=== PATIENT | male | born 1975 | race Caucasian/White ===

== ENCOUNTER 2024-05-05 09:52 | Observation (INO) | payer OTHER ==
[2024-05-05 10:30] LABS: Basophils # (A) 0.1 k/uL (0-0.2); Basophils % (A) 1 %; Eosinophils # (A) 0.1 k/uL (0-0.7); Eosinophils % (A) 2 %; HGB 15.1 gm/dL (13.0-17.5); Lymphocytes # (A) 1.9 k/uL (1.0-4.8); Lymphocytes % (A) 24 %; MCH 29.7 pg (25.0-35.0); MCHC 32.8 g/dL (31.0-37.0); MCV 90.5 fL (80.0-100.0); Mean Platelet Volume 7.2; Monocytes # (A) 0.6 k/uL (0-1.0); Monocytes % (A) 8 %; Neutrophils # (A) 5.1 k/uL (1.3-7.7); Neutrophils % (A) 64 %; Platelet Count 256 k/uL (150-450); RBC 5.09 m/uL (4.30-5.90); RDW 12.9 % (11.5-15.5)
[2024-05-05 10:57] LABS: INR 0.9 (<1.2); Partial Thromboplastin Time 22.7 sec (22.0-30.0); Prothrombin Time 10.6 sec (10.0-12.5)
[2024-05-05 10:59] LABS: ALT 36 U/L (4-49); AST 28 U/L (17-59); African American GFR (CKD) 85 (>60 ml/min/1.73 sqM); Albumin 4.3 g/dL (3.5-5.0); Alkaline Phosphatase 80 U/L (38-126); Anion Gap 9 mmol/L; Blood Urea Nitrogen 18 mg/dL (9-20); Calcium 9.5 mg/dL (8.4-10.2); Carbon Dioxide 24 mmol/L (22-30); Chloride 104 mmol/L (98-107); Glucose 169 mg/dL (74-99); Magnesium 1.6 mg/dL (1.6-2.3); Non-African American GFR(CKD) 73 (>60 ml/min/1.73 sqM); Potassium 4.8 mmol/L (3.5-5.1); Sodium 137 mmol/L (137-145); Total Bilirubin 0.5 mg/dL (0.2-1.3); Total Protein 7.6 g/dL (6.3-8.2)
--- NOTE | 2024-05-05 11:07 | XR ---
EXAMINATION TYPE: XR chest 2V DATE OF EXAM: 05/05/2024 CLINICAL INDICATION: Male, 49 years old with history of Chest Pain, TECHNIQUE: Frontal and lateral views of the chest are obtained. COMPARISON: None FINDINGS: There is no focal air space opacity, pleural effusion, or pneumothorax seen. The cardiac silhouette size is within normal limits. The osseous structures are intact. IMPRESSION: No acute process. [facility], , 05/05/2024 11:04 AM
--- NOTE | 2024-05-05 11:11 | ED ---
Chest Pain HPI - General Chief Complaint: Chest Pain Stated Complaint: chest pain, clammy Time Seen by Provider: 05/05/24 10:07 Source: patient, RN notes reviewed Mode of arrival: wheelchair Limitations: no limitations - History of Present Illness Initial Comments: This is a 49-year-old male with history of CKD 3 and restrictive pulmonary disease presenting with chest pain x 3 weeks. Patient describes intermittent pain as aching (4/10) that worsens with exertion. Endorses radiating pain to jaw and left arm with associated dizziness, nausea, fatigue and clamminess. Endorses history of heart catheterization at 30 years old with small blockage noted at that time. Endorses significant family heart history with father, grandmother and brother all having cardiac events in their 50s. Denies history of hypertension or AMI. Endorses brief history of hypercholesterolemia with resolution following prescription medication use with subsequent cessation. Denies dyspnea/SOB, vomiting, BLE edema. Endorses taking ASA 81 prior to ER arrival. MD Complaint: chest pain Onset/Timin -: week(s) Onset: during rest Pain Location: left chest Pain Radiation: LUE, jaw/teeth Severity scale (1-10): 4 Quality: aching Consistency: intermittent Improves With: rest Worsens With: exertion Anginal Symptoms: nausea Treatments Prior to Arrival: aspirin (ASA 81) - Related Data Home Medications Medication Instructions Recorded Confirmed allopurinoL [Zyloprim] 300 mg PO DAILY PRN 05/05/24 05/05/24 Previous Rx's Medication Instructions Recorded Atorvastatin [Lipitor] 40 mg PO HS #90 tab 05/06/24 Famotidine [Pepcid] 20 mg PO DAILY #60 tablet 05/06/24 Allergies Allergy/AdvReac Type Severity Reaction Status Date / Time oxycodone Allergy Itching Verified 05/05/24 13:11 Review of Systems ROS Statement: Those systems with pertinent positive or pertinent negative responses have been documented in the HPI. ROS Other: All systems not noted in ROS Statement are negative. Past Medical History Additional Past Medical History / Comment(s): gout History of Any Multi-Drug Resistant Organisms: None Reported Past Surgical History: Cholecystectomy, Joint Replacement, Orthopedic Surgery Past Psychological History: PTSD Smoking Status: Never smoker Past Alcohol Use History: Occasional Past Drug Use History: Marijuana General Exam Limitations: no limitations General appearance: alert, in no apparent distress Head exam: Present: atraumatic, normocephalic, normal inspection Eye exam: Present: normal appearance, PERRL, EOMI. Absent: scleral icterus, conjunctival injection, periorbital swelling ENT exam: Present: normal exam, mucous membranes moist Neck exam: Present: normal inspection. Absent: tenderness, meningismus, lymphadenopathy Respiratory exam: Present: normal lung sounds bilaterally. Absent: respiratory distress, wheezes, rales, rhonchi, stridor, accessory muscle use, decreased breath sounds, prolonged expiratory Cardiovascular Exam: Present: regular rate, normal rhythm, normal heart sounds. Absent: systolic murmur, diastolic murmur, rubs, gallop, clicks GI/Abdominal exam: Present: soft, normal bowel sounds. Absent: distended, tenderness, guarding, rebound, rigid Extremities exam: Present: normal inspection, full ROM, normal capillary refill, other (Bilateral posterior tibialis pulse +2). Absent: tenderness, pedal edema, joint swelling, calf tenderness Back exam: Present: normal inspection Neurological exam: Present: alert, oriented X3, CN II-XII intact Psychiatric exam: Present: normal affect, normal mood Skin exam: Present: warm, dry, intact, normal color. Absent: rash Course Vital Signs 05/05/24 05/05/24 05/05/24 09:56 11:45 13:54 Temperature 97.8 F Pulse Rate 66 60 57 L Pulse Rate [ Pulse Oximetery ] Respiratory 18 20 16 Rate Blood Pressure 188/76 144/87 117/73 Blood Pressure [Left Arm] O2 Sat by Pulse 98 98 97 Oximetry 05/05/24 05/05/24 15:00 15:26 Temperature 97.7 F 98.1 F Pulse Rate 64 Pulse Rate [ 59 L Pulse Oximetery ] Respiratory 18 18 Rate Blood Pressure 128/77 Blood Pressure 128/73 [Left Arm] O2 Sat by Pulse 97 96 Oximetry Chest Pain MDM - MDM Was pt. sent in by a medical professional or institution (, PA, ELECTROPHYSIOLOGY TECHNOLOGIST, urgent care, hospital, or long term...) When possible be specific @ -No Did you speak to anyone other than the patient for history (EMS, parent, family, police, friend...)? What history was obtained from this source @ -No Did you review nursing and triage notes (agree or disagree)? Why? @ -I reviewed and agree with nursing and triage notes Were old charts reviewed (outside hosp., previous admission, EMS record, old EKG, old radiological studies, urgent care reports/EKG's, long term records)? Report findings @ -No old charts were reviewed Differential Diagnosis (chest pain, altered mental status, abdominal pain women, abdominal pain men, vaginal bleeding, weakness, fever, dyspnea, syncope, headache, dizziness, GI bleed, back pain, seizure, CVA, palpatations, mental health, musculoskeletal)? @ -Differential Chest Pain: Stable Angina, Unstable Angina, STEMI, NSTEMI Aortic Dissection, Pneumothorax, Musculoskeletal, Esophageal Spasm GERD, Cholecystitis, Pancreatitis, Zoster, this is not meant to be an all-inclusive list. EKG interpreted by me (3pts min.). @ -Sinus rhythm with incomplete RBBB. No ST deviation or T wave inversion. Ventricular rate 64 bpm, JEREMI 197 ms, QRS 98 ms, QTc 383 ms. X-rays interpreted by me (1pt min.). @ -CXR shows no acute cardiopulmonary process. CT interpreted by me (1pt min.). @ -None done U/S interpreted by me (1pt. min.). @ -None done What testing was considered but not performed or refused? (CT, X-rays, U/S, labs)? Why? @ -None What meds were considered but not given or refused? Why? @ -None Did you discuss the management of the patient with other professionals (professionals i.e. , PA, ELECTROPHYSIOLOGY TECHNOLOGIST, lab, RT, psych nurse, aids social worker, spindraw operator, teacher, customer service officer, director of casework)? Give summary @ -Spoke to Dr. Irby for patient admission to obs unit with cardiac consult placed. Was smoking cessation discussed for >3mins.? @ -No Was critical care preformed (if so, how long)? @ -Yes, 35 minutes Were there social determinants of health that impacted care today? How? (Homelessness, low income, unemployed, alcoholism, drug addiction, tra nsportation, low edu. Level, literacy, decrease access to med. care, assisted, rehab)? @ -No Was there de-escalation of care discussed even if they declined (Discuss DNR or withdrawal of care, Hospice)? DNR status @ -No What co-morbidities impacted this encounter? (DM, HTN, Smoking, COPD, CAD, Cancer, CVA, ARF, Chemo, Hep., AIDS, mental health diagnosis, sleep apnea, morbid obesity)? @ -None Was patient admitted / discharged? Hospital course, mention meds given and route, prescriptions, significant lab abnormalities, going to OR and other pertinent info. @ -Heart score - 4. Lab work shows hyperglycemia 169 with negative repeat troponin and BNP. CXR shows no acute cardiopulmonary process. Patient initially provided p.o. chewable aspirin and sublingual nitroglycerin with complete resolution of chest pain following use. Patient started on Nitropaste and low intensity heparin drip. Spoke to Dr. Irby for patient admission to obs unit with cardiac consult placed. Discussed patient with Dr. Nguyen. Undiagnosed new problem with uncertain prognosis? @ -Chest pain Drug Therapy requiring intensive monitoring for toxicity (Heparin, Nitro, Insulin, Cardizem)? @ -Heparin Were any procedures done? @ -No Diagnosis/symptom? @ -Chest pain Acute, or Chronic, or Acute on Chronic? @ -Acute Uncomplicated (without systemic symptoms) or Complicated (systemic symptoms)? @ -Complicated Side effects of treatment? @ -No Exacerbation, Progression, or Severe Exacerbation? @ -No Poses a threat to life or bodily function? How? (Chest pain, [place], PR, pneumonia, PE, COPD, DKA, ARF, appy, cholecystitis, CVA, Diverticulitis, Homicidal, Suicidal, threat to staff... and all critical care pts) @ -Chest pain Disposition Clinical Impression: Chest pain Disposition: ADMITTED IP TO THIS HOSP Condition: Good Is patient prescribed a controlled substance at d/c from ED?: No Time of Disposition: 12:06 Decision Date: 05/05/24 Decision Time: 12:06
[2024-05-05] MEDS: ASPIRIN 81 MG PO STA (11:15)
[2024-05-05] MEDS: NITROGLYCERIN SL TABS 0.4 MG TAB SUBLINGUAL STA (11:16)
[2024-05-05] MEDS ORDERED: NALOXONE 0.4 MG/ML 1 ML VIAL IV PRN ×2 (12:03→13:16)
[2024-05-05] MEDS ORDERED: ONDANSETRON 4 MG/2 ML VIAL IVP PRN (12:03)
[2024-05-05] MEDS: NITROGLYCERIN OINT 1 INCH/GM PACKET TOPICAL STA (12:09)
[2024-05-05] MEDS: HEPARIN SODIUM 1,000 UN/ML (10ML VL) IV ONE (12:10)
[2024-05-05] MEDS: HEPARIN SOD,PORK IN 0.45% NACL 25,000 UNIT in 0.45% NACL 1 250ML.BAG IV SCH (12:13)
[2024-05-05] MEDS ORDERED: MAG HYDROX/AL HYDROX/SIMETH 30 ML CUP PO PRN (13:16)
[2024-05-05] MEDS ORDERED: oxyCODONE-APAP 5-325MG 1 EACH TAB PO PRN (13:16)
[2024-05-05] MEDS ORDERED: MELATONIN 3 MG TABLET PO PRN (13:16)
--- NOTE | 2024-05-05 13:38 | P.HPIM ---
History of Present Illness H&P Date: 05/05/24 History of present illness; patient is a 49-year-old gentleman with past medical history significant for CKD who presented the ER for chest pain. Patient stated that he has been having this chest pain for the last 3 weeks, it is intermittent, constricting in nature, central location, radiating to jaw and left and brought about by exertion and relieved by rest. Patient also complaining of shortness of breath associate with this chest pain. Patient states he becomes diaphoretic at the time of chest pain. There is no current nausea, vomiting abdominal pain. Patient denies any orthopnea or PND. There is no complaint of swelling of feet. Because of the chest pain, patient came to the ER Initial lab work done in the ER showed WBC 8, hemoglobin 15.1, platelet count 256, sodium 137, potassium 4.8, BUN 18, creatinine 1.16, glucose 169, calcium 9.5, AST 28, ALT 36, troponin 0.012 EKG done in the ER showed heart rate of 64, no ST segment elevation or depression seen, no T-wave inversions seen. Chest x-ray done in the ER showed no acute process Patient admitted to internal medicine service REVIEW OF SYSTEMS: CONSTITUTIONAL: No fever, no malaise, no fatigue. HEENT: No recent visual problems or hearing problems. Denied any sore throat. CARDIOVASCULAR: As mentioned above PULMONARY: As mentioned above GASTROINTESTINAL: No diarrhea, no nausea, no vomiting, no abdominal pain. NEUROLOGICAL: No headaches, no weakness, no numbness. HEMATOLOGICAL: Denies any bleeding or petechiae. GENITOURINARY: Denies any burning micturition, frequency, or urgency. MUSCULOSKELETAL/RHEUMATOLOGICAL: Denies any joint pain, swelling, or any muscle pain. ENDOCRINE: Denies any polyuria or polydipsia. The rest of the 14-point review of systems is negative. PHYSICAL EXAMINATION: GENERAL: The patient is alert and oriented x3, not in any acute distress. Well developed, well nourished. HEENT: Pupils are round and equally reacting to light. EOMI. No scleral icterus. No conjunctival pallor. Normocephalic, atraumatic. No pharyngeal erythema. No thyromegaly. CARDIOVASCULAR: S1 and S2 present. No murmurs, rubs, or gallops. PULMONARY: Chest is clear to auscultation, no wheezing or crackles. ABDOMEN: Soft, nontender, nondistended, normoactive bowel sounds. No palpable organomegaly. MUSCULOSKELETAL: No joint swelling or deformity. EXTREMITIES: No cyanosis, clubbing, or pedal edema. NEUROLOGICAL: Gross neurological examination did not reveal any focal deficits. SKIN: No rashes. Assessment and plan Chest pain, rule out acute coronary syndrome History of hypercholesteremia, not on any medication right now History of gout History of CKD Monitor vital signs Monitor CBC Monitor CMP Continue telemetry monitoring Troponin Ordered D-dimer Ordered 2D echo Ordered lipid panel Order HbA1c level Consult cardiology Labs and medication were reviewed.. Continue same treatment. Continue with symptomatic treatment. Resume home medication. Monitor labs and vitals. DVT and GI prophylaxis. Further recommendations as per clinical course of the patient Dictation was produced using [employer] dictation software. please excuse any grammatical, word or spelling errors. Past Medical History Additional Past Medical History / Comment(s): gout History of Any Multi-Drug Resistant Organisms: None Reported Past Surgical History: Cholecystectomy, Joint Replacement, Orthopedic Surgery Past Psychological History: PTSD Smoking Status: Never smoker Past Alcohol Use History: Occasional Past Drug Use History: Marijuana Medications and Allergies Home Medications Medication Instructions Recorded Confirmed Type allopurinoL [Zyloprim] 300 mg PO DAILY PRN 05/05/24 05/05/24 History Allergies Allergy/AdvReac Type Severity Reaction Status Date / Time oxycodone Allergy Itching Verified 05/05/24 13:11 Physical Exam Vitals: Vital Signs Temp Pulse Resp BP Pulse Ox 05/05/24 11:45 60 20 144/87 98 05/05/24 09:56 97.8 F 66 18 188/76 98 Intake and Output 05/04/24 05/05/24 05/05/24 22:59 06:59 14:59 Other: Weight 106.594 kg Results CBC & Chem 7: 05/05/24 10:17 05/05/24 10:17 Labs: Abnormal Lab Results - Last 24 Hours (Table) 05/05/24 Range/Units 10:17 Glucose 169 H (74-99) mg/dL
--- NOTE | 2024-05-05 14:05 | P.CRDCN ---
History of Present Illness History of present illness: HISTORY OF PRESENT ILLNESS: This is a 49-year-old male with a past medical history significant for restrictive lung disease, former nicotine dependence, marijuana use, and obesity. Patient does not follow with a employee benefits director. We have been asked to see the patient in consultation for chest pain. Patient examined at the bedside in the emergency room. Patient states about 3 weeks ago he got his truck stuck in his yard and had to dig out his truck. He reports having chest discomfort and shortness of breath at that time. He states since that incident he has been having intermittent chest discomfort. He states the pain is in the middle of his chest and is a pressure type sensation and radiates into his left arm and jaw. He reports the pain will last for about 5 to 10 minutes and then subside. He does report that the pain is worse with exertion. He received nitro in the emergency room with relief of pain. He denies having any further chest pain since that time. He also reports shortness of breath with the chest pain although he does report he is always short of breath at baseline. He states that he was told by the NH that he has restrictive lung disease. He also rep orts he has been feeling nauseated for the past few weeks and having dry heaves. The patient used to tobacco products but states he no longer does. He does report occasional marijuana use. The patient does report a significant family history of premature CAD. The patient's blood pressure was elevated with a systolic in the 180s upon admission. Patient states that he checks his blood pressure and it is usually in the 120s. DIAGNOSTICS: - EKG reveals sinus mechanism with no signs of acute ischemia. - Chest xray negative for acute process - Laboratory data: WBC 8.0. Hemoglobin 15.1. Platelet count 256. Sodium 137. Potassium 4.8. BUN 18. Creatinine 1.16. Magnesium 1.6. Troponin negative x 1 - Current home cardiac medications include none - No previous echocardiogram, stress test, or cardiac catheterization available in EMR for review REVIEW OF SYSTEMS: At the time of my exam: CONSTITUTIONAL: Denies fever or chills. HEENT: Denies blurred vision, vision changes, or eye pain. Denies hemoptysis CARDIOVASCULAR: Denies chest pain. Denies orthopnea. Denies PND. Denies palpitations RESPIRATORY: Denies shortness of breath. GASTROINTESTINAL: Denies abdominal pain. Denies nausea or vomiting. HEMATOLOGIC: Denies bleeding disorders. GENITOURINARY: Denies any blood in urine. SKIN: Denies pruitis. Denies rash. PHYSICAL EXAM: VITAL SIGNS: Reviewed. GENERAL: Well-developed in no acute distress. HEENT: Head is normocephalic. Pupils are equal, round. Sclerae anicteric. Mucous membranes of the mouth are moist. Neck supple. No JVD or thyromegaly LUNGS: Respirations even and unlabored. Lungs essentially clear to auscultation bilaterally. HEART: Regular rate and rhythm. S1 and S2 heard. ABDOMEN: Soft. Nondistended. Nontender. EXTREMITIES: Normal range of motion. No clubbing or cyanosis. Peripheral pulses intact. No lower extremity edema NEUROLOGIC: Awake and alert. Oriented x 3. ASSESSMENT: Chest pain Restrictive lung disease Former nicotine dependence Occasional marijuana use Obesity: BMI 30.2 Family history of premature coronary artery disease PLAN: Obtain 2D echo to assess cardiac structure and function Add aspirin 81 mg daily and atorvastatin 40 mg at night Check lipid panel and hemoglobin A1c Continue IV heparin Trend troponins N.p.o. at midnight Patient will be reevaluated in AM. Stress test versus cardiac catheterization to be performed tomorrow. Abstinence from marijuana encouraged Further recommendations pending patient course Nurse practitioner note has been reviewed by physician. Signing provider agrees with the documented findings, assessment, and plan of care documented by [employer] as a scribe. Past Medical History Additional Past Medical History / Comment(s): gout History of Any Multi-Drug Resistant Organisms: None Reported Past Surgical History: Cholecystectomy, Joint Replacement, Orthopedic Surgery Past Psychological History: PTSD Smoking Status: Never smoker Past Alcohol Use History: Occasional Past Drug Use History: Marijuana Medications and Allergies Home Medications Medication Instructions Recorded Confirmed Type allopurinoL [Zyloprim] 300 mg PO DAILY PRN 05/05/24 05/05/24 History Allergies Allergy/AdvReac Type Severity Reaction Status Date / Time oxycodone Allergy Itching Verified 05/05/24 13:11 Physical Exam Vitals: Vital Signs Temp Pulse Resp BP Pulse Ox 05/05/24 11:45 60 20 144/87 98 05/05/24 09:56 97.8 F 66 18 188/76 98 Intake and Output 05/04/24 05/05/24 05/05/24 22:59 06:59 14:59 Other: Weight 106.594 kg Results 05/05/24 10:17 05/05/24 10:17 Cardiac Enzymes 05/05/24 05/05/24 Range/Units 10:17 10:17 AST 28 (17-59) U/L Troponin I <0.012 (0.000-0.034) ng/mL Coagulation 05/05/24 Range/Units 10:17 PT 10.6 (10.0-12.5) sec APTT 22.7 (22.0-30.0) sec CBC 05/05/24 Range/Units 10:17 WBC 8.0 (3.8-10.6) k/uL RBC 5.09 (4.30-5.90) m/uL Hgb 15.1 (13.0-17.5) gm/dL Hct 46.0 (39.0-53.0) % Plt Count 256 (150-450) k/uL Comprehensive Metabolic Panel 05/05/24 Range/Units 10:17 Sodium 137 (137-145) mmol/L Potassium 4.8 (3.5-5.1) mmol/L Chloride 104 (98-107) mmol/L Carbon Dioxide 24 (22-30) mmol/L BUN 18 (9-20) mg/dL Creatinine 1.16 (0.66-1.25) mg/dL Glucose 169 H (74-99) mg/dL Calcium 9.5 (8.4-10.2) mg/dL AST 28 (17-59) U/L ALT 36 (4-49) U/L Alkaline Phosphatase 80 (38-126) U/L Total Protein 7.6 (6.3-8.2) g/dL Albumin 4.3 (3.5-5.0) g/dL Current Medications Generic Name Dose Route Start Last Admin Trade Name Freq PRN Reason Stop Dose Admin Acetaminophen 650 mg 05/05/24 13:16 Acetaminophen Tab 325 Mg Tab PO Q6HR PRN Mild Pain or Fever > 100.5 Al Hydroxide/Mg Hydroxide 15 ml 05/05/24 13:16 Mag Hydrox/Al Hydrox/Simeth 30 Ml Cup PO Q6HR PRN Indigestion Heparin Sodium (Porcine) 0 unit 05/05/24 11:50 Heparin Sodium 1,000 Un/Ml (10ml Vl) IV PER PROTOCOL PRN Low PTT Protocol Heparin Sodium/Sodium Chloride 250 mls @ 10 mls/hr 05/05/24 12:00 05/05/24 12 :13 25,000 unit/ Sodium Chloride IV 9.381 units/kg/hr .Q24H ALIYAH 10 mls/hr Administration Protocol 9.381 UNITS/KG/HR Melatonin 3 mg 05/05/24 13:16 Melatonin 3 Mg Tablet PO HS PRN Insomnia Naloxone HCl 0.2 mg 05/05/24 12:03 Naloxone 0.4 Mg/Ml 1 Ml Vial IV Q2M PRN Opioid Reversal Nitroglycerin 1 inch 05/05/24 20:00 Nitroglycerin Oint 1 Inch/Gm Packet TOPICAL Q8H ALIYAH Ondansetron HCl 4 mg 05/05/24 12:03 Ondansetron 4 Mg/2 Ml Vial IVP Q8HR PRN Nausea And Vomiting Oxycodone/Acetaminophen 1 each 05/05/24 13:16 Oxycodone-Apap 5-325mg 1 Each Tab PO Q4HR PRN Severe Pain (Scale 7 to 10) Intake and Output 05/04/24 05/05/24 05/05/24 22:59 06:59 14:59 Other: Weight 106.594 kg Patient Weight 05/06/24 06:59 Weight 106.594 kg 05/05/24 10:17 05/05/24 10:17
[2024-05-05] MEDS: ACETAMINOPHEN TAB 325 MG TAB PO PRN (16:38)
[2024-05-05] MEDS: NITROGLYCERIN OINT 1 INCH/GM PACKET TOPICAL SCH (19:52)
[2024-05-05] MEDS: HEPARIN SODIUM 1,000 UN/ML (10ML VL) IV PRN (20:13)
[2024-05-05] MEDS: ATORVASTATIN 40 MG TAB PO SCH (20:14)
[2024-05-06 02:01] LABS: Basophils % (A) 0 %; Eosinophils # (A) 0.1 k/uL (0-0.7); Eosinophils % (A) 2 %; HCT 42.7 % (39.0-53.0); HGB 14.2 gm/dL (13.0-17.5); Lymphocytes % (A) 35 %; MCH 29.6 pg (25.0-35.0); MCHC 33.3 g/dL (31.0-37.0); MCV 88.8 fL (80.0-100.0); Mean Platelet Volume 7.4; Monocytes # (A) 0.8 k/uL (0-1.0); Monocytes % (A) 9 %; Neutrophils # (A) 4.5 k/uL (1.3-7.7); Neutrophils % (A) 52 %; Platelet Count 217 k/uL (150-450); RBC 4.81 m/uL (4.30-5.90); RDW 13.2 % (11.5-15.5); WBC 8.6 k/uL (3.8-10.6)
[2024-05-06 02:07] LABS: Partial Thromboplastin Time 49.7 sec (22.0-30.0); Prothrombin Time 11.3 sec (10.0-12.5)
[2024-05-06] MEDS ORDERED: HEPARIN SODIUM,PORCINE (1 ML) 2,500 UNIT in SODIUM CHLORIDE 0.9% 250 ML IRRIGATION PRN (07:00)
[2024-05-06] MEDS ORDERED: HEPARIN SODIUM,PORCINE 10,000 UNIT in SODIUM CHLORIDE 0.9% 1,000 ML IRRIGATION PRN (07:00)
[2024-05-06 07:36] VITALS: RESP 16
[2024-05-06 08:41] LABS: Basophils # (A) 0.05 X 10*3/uL (0.00-0.10); Basophils % (A) 0.7 %; Eosinophils % (A) 1.4 %; HCT 42.1 % (39.6-50.0); HGB 14.8 g/dL (13.0-17.0); Lymphocytes # (A) 2.31 X 10*3/uL (0.90-5.00); Lymphocytes % (A) 31.5 %; MCH 30.4 pg (27.0-32.0); MCHC 35.2 g/dL (32.0-37.0); MCV 86.4 FL (80.0-97.0); Mean Platelet Volume 10.5 FL (9.5-12.2); Monocytes # (A) 0.84 X 10*3/uL (0.20-1.00); Monocytes % (A) 11.4 %; NRBC Per 100 WBC 0 X 10*3/uL (0.00-0.01); Neutrophils # (A) 3.93 X 10*3/uL (1.80-7.70); Neutrophils % (A) 53.5 %; Platelet Count 228 X 10*3/uL (140-440); RBC 4.87 X 10*6/uL (4.40-5.60); WBC 7.34 X 10*3/uL (4.50-10.00)
[2024-05-06] MEDS ORDERED: ALPRAZolam 0.25 MG TAB PO PRN (09:03)
[2024-05-06] MEDS ORDERED: NITROGLYCERIN SL TABS 0.4 MG TAB SUBLINGUAL PRN (09:03)
[2024-05-06] MEDS ORDERED: ALPRAZolam 0.5 MG TAB PO PRN (09:03)
--- NOTE | 2024-05-06 09:14 | P.PN ---
Subjective HISTORY OF PRESENT ILLNESS: This is a 49-year-old male with a past medical history significant for restrictive lung disease, former nicotine dependence, marijuana use, and obesity. Patient does not follow with a correctional officer. We have been asked to see the patient in consultation for chest pain. Patient examined at the bedside in the emergency room. Patient states about 3 weeks ago he got his truck stuck in his yard and had to dig out his truck. He reports having chest discomfort and shortness of breath at that time. He states since that incident he has been having intermittent chest discomfort. He states the pain is in the middle of h is chest and is a pressure type sensation and radiates into his left arm and jaw. He reports the pain will last for about 5 to 10 minutes and then subside. He does report that the pain is worse with exertion. He received nitro in the emergency room with relief of pain. He denies having any further chest pain since that time. He also reports shortness of breath with the chest pain although he does report he is always short of breath at baseline. He states that he was told by the [place] that he has restrictive lung disease. He also reports he has been feeling nauseated for the past few weeks and having dry heaves. The patient used to tobacco products but states he no longer does. He does report occasional marijuana use. The patient does report a significant family history of premature CAD. The patient's blood pressure was elevated with a systolic in the 180s upon admission. Patient states that he checks his blood pressure and it is usually in the 120s. DIAGNOSTICS: - EKG reveals sinus mechanism with no signs of acute ischemia. - Chest xray negative for acute process - Laboratory data: WBC 8.0. Hemoglobin 15.1. Platelet count 256. Sodium 137. Potassium 4.8. BUN 18. Creatinine 1.16. Magnesium 1.6. Troponin negative x 1 - Current home cardiac medications include none - No previous echocardiogram, stress test, or cardiac catheterization available in EMR for review 05/06/2024 Patient examined this morning at the bedside. Patient reports having an episode around 2:00 in the morning of chest discomfort after he got up to use the bathroom. He reports that he was given Nitropaste and his pain did improve. He currently denies chest pain at the time of examination. He remains on IV heparin. Troponins negative x 3. PHYSICAL EXAM: VITAL SIGNS: Reviewed. GENERAL: Well-developed in no acute distress. HEENT: Head is normocephalic. Pupils are equal, round. Sclerae anicteric. Mucous membranes of the mouth are moist. Neck supple. No JVD or thyromegaly LUNGS: Respirations even and unlabored. Lungs essentially clear to auscultation bilaterally. HEART: Regular rate and rhythm. S1 and S2 heard. ABDOMEN: Soft. Nondistended. Nontender. EXTREMITIES: Normal range of motion. No clubbing or cyanosis. Peripheral pulses intact. No lower extremity edema NEUROLOGIC: Awake and alert. Oriented x 3. ASSESSMENT: Chest pain/angina concerning for CAD Restrictive lung disease Former nicotine dependence Occasional marijuana use Obesity: BMI 30.2 Family history of premature coronary artery disease PLAN: 2D echo ordered. Await results Continue current cardiac medications Continue IV heparin Patient to undergo cardiac catheterization today with Dr. Jacobo as Dr. Martinez is unavailable today Abstinence from marijuana encouraged Further recommendations pending patient course Nurse practitioner note has been reviewed by physician. Signing provider agrees with the documented findings, assessment, and plan of care documented by ELECTRIC MOTOR AND GENERATOR ASSEMBLER as a scribe. Objective - Vital Signs Vital signs: Vital Signs Temp 98.0 F 05/06/24 07:05 Pulse 62 05/06/24 07:05 Resp 16 05/06/24 07:05 BP 122/70 05/06/24 07:05 Pulse Ox 97 05/06/24 07:05 FiO2 Intake & Output 05/05/24 05/06/24 05/06/24 18:59 06:59 18:59 Intake Total 220.148 Balance 220.148 Weight 106.594 kg Intake: Intake, IV Titration 220.148 Amount Heparin Sod,Pork in 0.45% 220.148 NaCl 25,000 unit In 0.45 % NaCl 1 250ml.bag @ 9. 381 UNITS/KG/HR 10 mls/hr IV .Q24H ALIYAH Rx#: [id number] Other: # Voids 2 3 - Labs CBC & Chem 7: 05/06/24 06:04 05/05/24 10:17 Labs: Abnormal Lab Results - Last 24 Hours (Table) 05/05/24 05/06/24 05/06/24 Range/Units 10:17 01:27 06:04 Immature Gran # 0.11 H (0.00-0.04) X 10*3/uL APTT 49.7 H (22.0-30.0) sec Glucose 169 H (74-99) mg/dL 05/06/24 Range/Units 06:04 Immature Gran # (0.00-0.04) X 10*3/uL APTT 39.9 H (22.0-30.0) sec Glucose (74-99) mg/dL
[2024-05-06] MEDS: ASPIRIN 81 MG PO SCH (09:37)
[2024-05-06] MEDS: ASPIRIN 325 MG TAB PO STA (09:37)
[2024-05-06] MEDS: ATORVASTATIN 80 MG TAB PO STA (09:37)
[2024-05-06] MEDS: SODIUM CHLORIDE 0.9% 1,000 ML in EMPTY BAG 1 BAG IV SCH (09:38)
--- NOTE | 2024-05-06 09:53 | CA ---
Transthoracic Echo Report Name: Palomo Romero Age: 49 Gender: M : 1975 Exam Date: 05/06/2024 07:24 Exam Location: [place] [facility] Ht (in): 74 Wt (lb): 235 Ordering Physician: Amadou Nguyen MD Attending/Referring Phys: Dairy Truck Driver Nadine Escalera RDCS Procedure CPT: Indications: Chest Pain Cardiac Hx: Technical Quality: Technically difficult study Contrast 1: Definity Total Dose (mL): 3 Contrast 2: Total Dose (mL): MEASUREMENTS (Male / Female) Normal Values 2D ECHO LV Diastolic Diameter PLAX 4.5 cm 4.2 - 5.9 / 3.9 - 5.3 cm LV Systolic Diameter PLAX 3.0 cm IVS Diastolic Thickness 1.0 cm 0.6 - 1.0 / 0.6 - 0.9 cm LVPW Diastolic Thickness 1.0 cm 0.6 - 1.0 / 0.6 - 0.9 cm LV Relative Wall Thickness 0.4 LVOT Diameter 2.4 cm LV Diastolic Volume MOD BP 105.2 cm??? 67 - 155 / 56 - 104 cm??? LV Systolic Volume MOD BP 41.0 cm??? 22 - 58 / 19 - 49 cm??? LV Ejection Fraction MOD BP 61.1 % >= 55 % LV Cardiac Index MOD BP 1537.1 cm???/min???m??? LV Diastolic Volume MOD 4C 108.5 cm??? LV Systolic Volume MOD 4C 40.8 cm??? LV Ejection Fraction MOD 4C 62.3 % LV Cardiac Index MOD 4C 1618.3 cm???/min???m??? LV Diastolic Length 4C 9.0 cm LV Systolic Length 4C 7.2 cm LV Diastolic Volume MOD 2C 87.8 cm??? LV Systolic Volume MOD 2C 35.9 cm??? LV Ejection Fraction MOD 2C 59.1 % LV Cardiac Index MOD 2C 1242.1 cm???/min???m??? LV Diastolic Length 2C 7.7 cm LV Systolic Length 2C 6.3 cm LA Volume 62.2 cm??? 18 - 58 / 22 - 52 cm??? LA Volume Index 26.1 cm???/m??? 16 - 28 cm???/m??? Ascending Aorta Diameter 3.4 cm DOPPLER AV Peak Velocity 154.5 cm/s AV Peak Gradient 9.6 mmHg AV Mean Velocity 114.8 cm/s AV Mean Gradient 5.6 mmHg AV Velocity Time Integral 33.1 cm LVOT Peak Velocity 113.5 cm/s LVOT Peak Gradient 5.2 mmHg LVOT Velocity Time Integral 24.0 cm LVOT Stroke Volume 105.0 cm??? LVOT Stroke Volume Index 45.1 ml/m??? LVOT Cardiac Index 2512.4 cm???/min???m??? AV Area Cont Eq vti 3.2 cm??? AV Area Cont Eq pk 3.2 cm??? MV Area PHT 4.3 cm??? Mitral E Point Velocity 52.9 cm/s Mitral A Point Velocity 47.3 cm/s Mitral E to A Ratio 1.1 MV Deceleration Time 175.3 ms TR Peak Velocity 244.0 cm/s TR Peak Gradient 23.8 mmHg Right Atrial Pressure 10.0 mmHg Pulmonary Artery Systolic Pressu 33.8 mmHg Right Ventricular Systolic Press 33.8 mmHg PV Peak Velocity 118.9 cm/s PV Peak Gradient 5.7 mmHg FINDINGS Left Ventricle Left ventricular ejection fraction is estimated at 60 %. Left ventricular cavity size normal. Left ventricular wall thickness normal. No obvious regional wall motion abnormalities. Right Ventricle Normal right ventricular size and function. Right ventricular systolic pressure within normal limits. Right Atrium Normal right atrial size. Left Atrium Mildly increased left atrial volume. Mitral Valve Structurally normal mitral valve. No mitral stenosis, regurgitation or prolapse. Aortic Valve Trileaflet aortic valve. No aortic valve stenosis or regurgitation. Tricuspid Valve Structurally normal tricuspid valve. No tricuspid stenosis. Mild tricuspid regurgitation. Pulmonic Valve Structurally normal pulmonic valve. No pulmonic stenosis. Trace pulmonic regurgitation. Pericardium No pericardial effusion. Aorta Normal size aortic root and proximal ascending aorta. CONCLUSIONS Normal biventricular dimension and systolic function No significant valvular abnormalities noted Normal pulmonary artery systolic pressure Normal aortic root and proximal ascending aorta Previewed by: Dr. Emery Jacobo MD (Electronically Signed) Final Date: 06 May 2024 09:52
[2024-05-06] MEDS: MIDAZOLAM 2 MG/2 ML VIAL IVP ONE (10:41)
[2024-05-06] MEDS: HEPARIN SODIUM,PORCINE (1 ML) 2,500 UNIT in SODIUM CHLORIDE 0.9% 250 ML IRRIGATION ONE (10:41)
[2024-05-06] MEDS: SODIUM CHLORIDE 0.9% 1,000 ML IV ONE (10:41)
[2024-05-06] MEDS: HEPARIN SODIUM,PORCINE 10,000 UNIT in SODIUM CHLORIDE 0.9% 1,000 ML IRRIGATION ONE (10:41)
[2024-05-06] MEDS: fentaNYL (PF) 50 MCG/ML 2 ML AMP IVP ONE ×2 (10:41→10:47)
[2024-05-06] MEDS: LIDOCAINE 1% INJ 10MG/ML (20 ML MDV) SQ ONE (10:41)
[2024-05-06] MEDS: VERAPAMIL SYRINGE (5 MG/10 ML) INTRAARTER ONE ×2 (10:43→10:59)
[2024-05-06] MEDS: HEPARIN SODIUM 1,000 UN/ML (10ML VL) IVP ONE (10:47)
[2024-05-06] MEDS: NITROGLYCERIN SL TABS 0.4 MG TAB SUBLINGUAL ONE (10:48)
[2024-05-06] MEDS: MORPHINE SULFATE 4 MG/ML SYRINGE IVP ONE ×2 (10:52→10:59)
[2024-05-06 11:01] LABS: ALT 42 U/L (10-49); AST 34 U/L (14-35); Albumin 3.8 g/dL (3.8-4.9); Albumin/Globulin Ratio 1.31 Ratio (1.60-3.17); Alkaline Phosphatase 80 U/L (41-126); BUN/Creat Ratio 13.55 Ratio (12.00-20.00); Blood Urea Nitrogen 14.9 mg/dL (9.0-27.0); Calcium 8.6 mg/dL (8.7-10.3); Carbon Dioxide 22.3 mmol/L (21.6-31.8); Chloride 105 mmol/L (96-109); Globulin 2.9 g/dL (1.6-3.3); Glucose 112 mg/dL (70-110); LDL Cholesterol,Calculated 116.6 mg/dL (0.0-131.0); Potassium 4.6 mmol/L (3.5-5.5); Sodium 138 mmol/L (135-145); Total Bilirubin 0.4 mg/dL (0.3-1.2); Total Protein 6.7 g/dL (6.2-8.2)
[2024-05-06] MEDS: PHENYLEPHRINE-0.9% NACL SYG 1,000 MCG/10 ML SYRINGE IVP ONE (11:08)
[2024-05-06] MEDS: IOPAMIDOL-370 100ML BTL INJ ONE (11:09)
[2024-05-06] MEDS ORDERED: RX INFO: IV CONTRAST WAS GIVEN 1 EACH MISC MISCELLANE PRN (11:12)
--- NOTE | 2024-05-06 11:14 | P.PCN ---
Date of Procedure: 05/06/24 Operative Findings: CARDIAC CATHETERIZATION PERFORMING PHYSICIAN: Emery Jacobo MD, RPVI PROCEDURE PERFORMED: 1. Selective right and left coronary angiogram 2. Left heart catheterization 3. Ultrasound-guided access of the right radial artery 4. Selective right common femoral artery angiogram INDICATION: Chest discomfort concerning for unstable angina COMPLICATION: None APPROACH: Right radial artery LEVEL OF SEDATION: Moderate with a sedation length of 29 minutes PROCEDURE DESCRIPTION: After obtaining an informed consent, the patient was brought to cardiac electronic lab technician. Local anesthesia was performed using lidocaine subcutaneously. The right radial artery was cannulated using Seldinger technique, under ultrasound guidance, the guidewire passed easily, following that we advanced a 5-Andorran sheath dilator assembly, the wire and dilator were removed and sheath was flushed. Following that, 2 mg of verapamil along with 5000 unit heparin were given. Selective right coronary angiogram was performed using JR4 catheter. Attempting advancing even 4 Andorran JL 3.5 catheter was unsuccessful in spite of using long sheath because of severe vasospasm and for that reason we decided to access the right common femoral artery which was accessed using micropuncture technique and I placed a 4 Andorran sheath. I did selective left coronary angiogram using JL 3.5 catheter. Selective right common femoral artery angiogram was performed by the end The procedure was completed there was no complication. SELECTIVE CORONARY ANGIOGRAM: The right coronary artery: Large-caliber vessel and dominant vessel appears to be angiographically normal Left main: Is angiographically normal The left circumflex: Large caliber vessel nondominant vessel appears to be normal gives rise into first and second obtuse marginal branches both appear to be normal The left anterior descending artery: Large caliber vessel appears to be normal as well CONCLUSION: 1. Normal coronary angiogram POSTPROCEDURE MANAGEMENT: Medical treatment
[2024-05-06] MEDS: SODIUM CHLORIDE 0.9% 1,000 ML IV SCH (12:20)
--- NOTE | 2024-05-06 13:44 | P.DS ---
Providers Date of admission: 05/05/24 11:48 Expected date of discharge: 05/06/24 Attending physician: Lyndon Shah Consults: 05/05/24 12:03 Consult Physician Stat Consulting Provider: Emery Jacobo Consult Reason/Comments: Chest pain Do you want consulting provider notified?: Yes [facility] care [facility] Course: Discharge Diagnosis: Chest pain, ACS ruled out GERD Costochondritis Dyslipidemia Former nicotine dependence Hospital Course: 49-year-old male with history of CKD, former smoker presenting with acute chest pain. Vital signs on arrival showed elevated blood pressure 188/76. Labs on admission were unremarkable. Troponin negative x 3. Chest x-ray did not show any acute process. EKG showed normal sinus rhythm with incomplete right bundle branch block. Cardiology was consulted. Patient has extensive family history of heart disease. Underwent cardiac catheter which showed normal coronary arteries, echocardiogram was unrevealing. Chest pain likely musculoskeletal versus gastric reflux. Follow-up outpatient with PCP and cardiology. Also being discharged on statin therapy given elevated triglycerides and elevated cholesterol. Blood pressure now stable. Patient seen and examined at bedside. Vital signs reviewed and stable. General: Nontoxic, no distress, appears at stated age Derm: Warm, dry Head: Atraumatic, normocephalic, symmetric Eyes: EOMI, no lid lag, anicteric sclera Mouth: No lip lesion, mucus membranes moist Cardiovascular: S1S2 reg, no murmur Lungs: CTA bilateral, no rhonchi, no rales, no accessory muscle use Abdominal: Soft, nontender to palpation, no guarding, no appreciable organomegaly Ext: No gross muscle atrophy, no edema, no contractures Neuro: CN II-XI grossly intact, no focal neuro deficits Psych: Alert, oriented, appropriate affect A total of 36 minutes of time were spent preparing this complex discharge summary. Patient was discharged on 05/06/2024 at 1210. Patient Condition at Discharge: Good Plan - Discharge Summary New Discharge Prescriptions: New Atorvastatin [Lipitor] 40 mg PO HS #90 tab Famotidine [Pepcid] 20 mg PO DAILY #60 tablet Continue allopurinoL [Zyloprim] 300 mg PO DAILY PRN PRN Reason: GOUT FLARE UP Discharge Medication List allopurinoL [Zyloprim] 300 mg PO DAILY PRN 05/05/24 [History] Atorvastatin [Lipitor] 40 mg PO HS #90 tab 03/14/25 [Rx] Famotidine [Pepcid] 20 mg PO DAILY #60 tablet 05/06/24 [Rx] Follow up Appointment(s)/Referral(s): Emery Jacobo MD [STAFF PHYSICIAN] - 05/11/24 3:30 pm Placido Servin DO [Primary Care Provider] - 1-2 days Patient Instructions/Handouts: Chest Pain (ED) Activity/Diet/Wound Care/Special Instructions: Please see PCP and major league baseball player. Discharge Disposition: HOME SELF-CARE
[2024-05-06 14:44] VITALS: BP 118/80; PULSE 56; TEMP 97.4
== END 2024-05-06 15:44 | disposition home or self-care (01) ==
LOC: EC 09:52 → 6NMEDSUR 11:48
PROVIDERS: ADMIT Student in an Organized Health Care Education/Training Program; ATTEND Student in an Organized Health Care Education/Training Program
DX: R07.9 Chest pain, unspecified (principal); J98.4 Other disorders of lung; K21.9 Gastro-esophageal reflux disease without esophagitis; M94.0 Chondrocostal junction syndrome [Tietze]; N18.30 Chronic kidney disease, stage 3 unspecified; E78.00 Pure hypercholesterolemia, unspecified; M10.9 Gout, unspecified; F12.90 Cannabis use, unspecified, uncomplicated; E66.9 Obesity, unspecified; Z68.30 Body mass index [BMI] 30.0-30.9, adult; Z87.891 Personal history of nicotine dependence; Z79.899 Other long term (current) drug therapy; Z88.5 Allergy status to narcotic agent; Z82.49 Family history of ischemic heart disease and other diseases of the circulatory system
CPT/HCPCS: 93458; 96365; 96366 ×2; 96376; 99291; 36415; 93005; 93306; 85379; 83880; 80061; 80053 ×2; 83735; 84484; 85025 ×2; 85610 ×2; 85730 ×2; 83036; 71046; G0378 ×2; J2250; J2270; J1644 ×6; J2003; J3010; Q9957; Q9967; J2371

== ENCOUNTER → 2024-08-09 | Outpatient (CLI) | payer OTHER | LOC: CPPFTMAIN 09:28 | PROVIDERS: ATTEND Family Medicine | DX: J84.9 Interstitial pulmonary disease, unspecified (principal); Z88.5 Allergy status to narcotic agent | CPT/HCPCS: 94060; 94726; 94729 ==